=== PATIENT | female | born 1960 ===

== ENCOUNTER 2022-11-28 03:38 | Emergency (ER) | payer OTHER ==
[2022-11-28] MEDS ORDERED: GASTROGRAFIN 30 ML BOT ONE (10:50)
== END 2022-11-28 06:17 ==
LOC: ERS 03:38
DX: K94.23 Gastrostomy malfunction (principal); I10 Essential (primary) hypertension; E78.5 Hyperlipidemia, unspecified
CPT/HCPCS: 43762; 74018; Q9963

== ENCOUNTER 2023-01-06 03:23 | Emergency (ER) | payer OTHER | END 2023-01-06 04:42 | LOC: ERS 03:23 | DX: K94.23 Gastrostomy malfunction (principal); I10 Essential (primary) hypertension; E78.5 Hyperlipidemia, unspecified | CPT/HCPCS: 43762; 74018 ==

== ENCOUNTER 2023-01-09 15:47 | Emergency (ER) | payer OTHER ==
[~2023-01-09 15:47] MED LIST: GASTROGRAFIN 30 ML BOT ONE
== END 2023-01-09 20:50 ==
LOC: ERS 15:47
DX: K94.20 Gastrostomy complication, unspecified (principal); I10 Essential (primary) hypertension; E78.5 Hyperlipidemia, unspecified
CPT/HCPCS: 74018; Q9963